=== PATIENT | male | born 1970 | race Caucasian/White ===

== ENCOUNTER 2017-12-05 18:52 | Emergency (ER) | payer BC, SELFPAY ==
[2017-12-05 18:57] VITALS: BP 136/86; PULSE 118; RESP 22; TEMP 38.4; O2SAT 97
[2017-12-05 19:41] VITALS: BP 136/86; PULSE 118; RESP 22; TEMP 38.4; O2SAT 97
[2017-12-05 20:50] LABS: Add Manual Diff / Slide Review NO; Eosinophils Percent Auto 0.5 % (2-4); Hemoglobin 16.1 g/dL (13.5-17.5); Lymphocytes Percent Auto 10.2 % (25-40); Mean Corpuscular HGB Conc 34.9 % (30-36); Mean Corpuscular Hemoglobin 31.8 PG (26-34); Mean Corpuscular Volume 91.2 fL (80-100); Monocytes Percent Auto 8.4 % (3-14); Neutrophils Absolute Auto 14700 /uL (3000-5900); Neutrophils Percent Auto 79.9 % (50-75); Platelet Count 202 X10^3/uL (150-400); Red Blood Cell Count 5.04 X10^6/uL (4.5-5.9); Red Cell Distribution Width 13.5 % (11.6-14.8); White Blood Cell Count 18.4 X10^3/uL (4.5-11.0)
[2017-12-05] MEDS: SODIUM CHLORIDE 0.9% 1,000 ML 1000 ML IV (20:50)
[2017-12-05 21:00] LABS: Alanine Aminotransferase 30 IU/L (21-72); Albumin 4.5 g/dL (3.5-5.0); Albumin Globulin Ratio 1.2 (1.0-2.8); Alkaline Phosphatase 77 U/L (38-126); Aspartate Aminotransferase 47 IU/L (17-59); BUN Creatinine Ratio 16.7 (6-22); Bilirubin Total 0.9 mg/dL (0.2-1.3); Blood Urea Nitrogen 15 mg/dL (9-20); Calcium 9.4 mg/dL (8.4-10.2); Carbon Dioxide 26 mmol/L (22-32); Chloride 102 mmol/L (98-107); Estimated Glomerular Filt Rate > 60.0 mL/min (>60); Globulin 3.9 g/dL (1.7-4.1); Glucose 114 mg/dL (70-100); HEMOLYSIS 27 (0-50); Potassium 4.2 mmol/L (3.4-5.1); Sodium 140 mmol/L (137-145); Total Protein 8.4 g/dL (6.3-8.2)
[2017-12-05 21:02] VITALS: TEMP 38.4
[2017-12-05] MEDS: HYDROMORPHONE 1 MG INJ 0.5 MG IV (21:02)
[2017-12-05 21:45] VITALS: TEMP 37.9
--- NOTE | 2017-12-05 22:15 | DI.CT.S_ITS ---
PROCEDURE: CT ABDOMEN PELVIS W CON INDICATIONS: low abdominal pain TECHNIQUE: After the administration of intravenous contrast, 5 mm thick sections acquired from the diaphragm to the symphysis. 5 mm coronal and sagittal reformats were acquired. For radiation dose reduction, the following was used: automated exposure control, adjustment of mA and/or kV according to patient size. COMPARISON: None. FINDINGS: Image quality: Excellent. ABDOMEN: Lung bases: Lung bases are clear. Heart size is normal. Solid organs: Liver is normal in size and enhancement. Gallbladder is within normal limits. Biliary system is non dilated. Pancreas enhances normally. Spleen is normal in size and enhancement. No adrenal nodules. Kidneys demonstrate normal size. Nonobstructing calculi within the inferior pole left kidney are present measuring less than 5 mm diameter. Peritoneum and bowel: Stomach and small bowel are within normal limits. Appendix is normal. Colon is nondistended. There is diverticulosis of the descending and sigmoid colon. There is moderate thickening of the proximal sigmoid colon within the left pelvis. Moderate fastenings around this segment of colon. No pericolonic abscess. No free fluid or air. Nodes and vessels: No retroperitoneal or mesenteric adenopathy by size criteria. Aorta and inferior vena cava are normal in size. Miscellaneous: No ventral hernias. PELVIS: Genitourinary: Bladder wall thickness is normal. Miscellaneous: No inguinal hernias or adenopathy. Bones: No suspicious bony lesions. No vertebral body compression fractures. IMPRESSION: 1. Diverticulitis of the proximal sigmoid colon. No pericolonic abscess. 2. Nonobstructing left inferior pole nephroliths. Dictated by: Janae Florence M.D. on 12/05/2017 at 23:42 Approved by: Janae Florence M.D. on 12/05/2017 at 23:45
[2017-12-05 22:56] VITALS: BP 120/68; PULSE 110; RESP 18; O2SAT 96
[2017-12-05 22:56] LABS: Bacteria Urine None Seen; RBC Urine None Seen (0-5/HPF); WBC Urine None Seen (0-5/HPF)
[2017-12-05 22:57] LABS: Appearance Urine UA CLEAR; Bilirubin Urine UA NEGATIVE (NEGATIVE); Color Urine UA YELLOW; Glucose Urine UA NEGATIVE (Normal); Ketones Urine UA 1+ (NEGATIVE); Leukocyte Esterase Urine UA NEGATIVE (NEGATIVE); Nitrite Urine UA Negative (Negative); Occult Blood Urine UA TRACE-LYSED (Negative); Protein Urine UA NEGATIVE (Negative); Specific Gravity Urine UA 1.015 (1.000-1.035); Urobilinogen Urine UA 0.2 E.U./dL (0.2)
[2017-12-05 23:07] LABS: Culture Indicated Urine Cult Not Indicated; Urine Comments Microscopic Normal
[2017-12-06] MEDS: metroNIDAZOLE 500 MG/100 ML PIGGYBACK 100 MG IV (00:36)
[2017-12-06] MEDS: levoFLOXacin 750 MG/150 ML PIGGYBACK 100 MG IV (01:42)
--- NOTE | 2017-12-06 03:40 | PC.NURSE ---
Pt abx finished infusing, dr goreayed pt to rest in room after dc due to pt being from [place] here on a boat.
--- NOTE | 2017-12-06 06:02 | ED.ABDPAIN ---
HPI - Abdominal Pain General Chief Complaint: Abdominal Pain Stated Complaint: sent for possible Diverticulitis Time Seen by Provider: 12/05/17 19:22 Source: patient and family Mode of arrival: ambulatory Limitations: no limitations History of Present Illness MD complaint: abdominal pain Onset (ago): day(s) (2) Pain Consistency: constant ( Worsening) Location: LLQ and L flank Severity: moderate Severity scale (1-10): 6 Quality: stabbing ( throbbing) Radiation: none Relieving factors: nothing Exacerbating factors: nothing Context: other ( Patient and have been on a sailboat trip. Patient noticed that the pain worsened this morning during intercourse, and he sought care at a clinic in the [facility]. He was sent over here out of concern for diverticulitis.) Associated symptoms: nausea Treatments prior to arrival: other ( None) Related Data Previous Rx's Medication Instructions Recorded hydrocodone-acetaminophen 2 tab PO Q6H PRN #14 tab 12/06/17 levofloxacin [Levaquin] 500 mg PO DAILY #14 tab 12/06/17 metronidazole [Flagyl] 500 mg PO BID #28 tab 12/06/17 Allergies Allergy/AdvReac Type Severity Reaction Status Date / Time No Known Drug Allergies Allergy Verified 12/05/17 20:31 Review of Systems Review of Systems All systems reviewed & are unremarkable except as noted in HPI and below Constitutional Denies chills, Denies fever(s), Denies lethargy and Denies weakness Eyes Denies change in vision, Denies eye discharge, Denies irritation and Denies loss of vision ENT Ears, Nose, Mouth, and Throat: Denies change in voice, Denies neck pain and Denies sore throat Cardiovascular Denies chest pain, Denies irregular heart rhythm, Denies lightheadedness, Denies palpitations, Denies dyspnea, Denies dyspnea on exertion and Denies orthopnea Respiratory Denies cough, Denies dyspnea, Denies dyspnea on exertion and Denies wheezing Gastrointestinal Gastrointestinal: Reports abdominal pain, Denies change in bowel habits, Denies diarrhea, Denies nausea and Denies vomiting Genitourinary Denies hematuria, Denies flank pain, Denies urinary incontinence and Denies urinary urgency Musculoskeletal Denies neck pain Integumentary/Breasts Denies pruritus, Denies erythema, Denies rash and Denies wounds Neurologic Denies confusion, Denies loss of vision and Denies weakness Psychiatric Denies anxiety, Denies confusion, Denies depression, Denies homicidal ideation and Denies suicidal ideation Endocrine Denies palpitations Hematologic/Lymphatic Denies easy bruising Allergic/Immunologic Denies wheezing PFSH Medical History Diverticulitis (Acute) Surgical History No pertinent past surgical history (Acute) Comment: occasional alcohol Exam Initial Vital Signs Initial Vital Signs: Vital Signs Temperature 101.2 F H 12/05/17 18:57 Pulse Rate 118 H 12/05/17 18:57 Respiratory Rate 22 12/05/17 18:57 Blood Pressure 136/86 12/05/17 18:57 Pulse Oximetry 97 12/05/17 18:57 Const General: cooperative and well developed Nutritional Appearance: well nourished Orientation: alert, awake, oriented x3 and not confused HENNH Head: normocephalic and atraumatic Ears: external ears normal Nose: external nose normal and No nasal discharge Face and sinus: face symmetric and No dry mucous membranes Mouth: oral mucosae normal and moist mucous membranes Eyes General: appearance normal, both eyes and all related structures Eyelids: eyelids normal Conjunctivae: conjunctivae normal Sclera: sclerae normal Pupils: PERRL EOM: EOM intact bilaterally Neck Neck: normal visual inspection, trachea midline, No lymphadenopathy, No midline deformity and No JVD Lymphatic: No lymphedema Chest Chest: normal inspection of the chest Resp Effort & Inspection: normal respiratory effort, able to speak in complete sentences, no respiratory distress and no use of accessory muscles Auscultation: clear to auscultation bilaterally, no rales, no rhonchi and no wheezes Cardio Rate: regular rate Rhythm: regular rhythm Heart Sounds: no click, no gallops, no murmurs and no rubs Pulses: normal peripheral pulses GI Inspection: non-distended Palpation: soft, no hepatosplenomegaly, No guarding, No pulsatile mass and tender ( moderate, left lower quadrant.) Back/Spine/Pelvis Back: No CVA tenderness Cervical Spine: cervical ROM normal and No pain with cervical ROM Thoracic/Lumbar Spine: thoracic and lumbar spine normal to inspection Skin General: no rashes or lesions noted, No jaundice and No petechiae Neuro General: alert, oriented x3, gait normal and no focal motor deficits Speech: speech normal Extrem General: full ROM, no clubbing, cyanosis or edema, no pedal edema and no calf tenderness Psych Appearance: well kempt Mental Status: mental status grossly normal Attitude: cooperative Thought Content: normal and suicidality Judgment: judgment good Course Course Narrative: The patient was treated symptomatically for his pain. He was worked up with labs and CT scan, and found to have diverticulitis. He was given antibiotics for this in the emergency department. We have discussed home management, as well as the usual indications for return. Orders Ordered: Discontinued Medications Hydromorphone HCl (Dilaudid) 0.5 mg IV NOW ONE Stop: 12/05/17 20:45 Last Admin: 12/05/17 21:02 Dose: 0.5 mg Sodium Chloride (Normal Saline 0.9%) 1,000 mls @ 1,000 mls/hr IV BOLUS ONE Stop: 12/05/17 21:43 Last Infusion: 12/05/17 21:57 Dose: 0 mls/hr Admin: 12/05/17 20:50 Dose: 1,000 mls/hr Levofloxacin (Levaquin) 750 mg in 150 mls @ 100 mls/hr IV NOW ONE Stop: 12/06/17 01:52 Last Infusion: 12/06/17 03:25 Dose: 0 mls/hr Admin: 12/06/17 01:42 Dose: 100 mls/hr Metronidazole (Flagyl) 500 mg in 100 mls @ 100 mls/hr IV NOW ONE Stop: 12/06/17 01:22 Last Infusion: 12/06/17 01:43 Dose: 0 mls/hr Admin: 12/06/17 00:36 Dose: 100 mls/hr Vital Signs - 8 hr 12/05/17 22:56 Pulse Rate 110 H Respiratory Rate 18 Blood Pressure [Left Arm] 120/68 Pulse Oximetry 96 MDM - Abdominal Pain Medical Records Attestation: I reviewed the patient's medical records. Lab Data Attestation: I reviewed the patient's lab results. Result diagrams: 12/05/17 19:15 12/05/17 19:15 Lab Results 12/05/17 12/05/17 12/05/17 Range/Units 19:15 19:15 22:55 WBC 18.4 H (4.5-11.0) X10^3/uL RBC 5.04 (4.5-5.9) X10^6/uL Hgb 16.1 (13.5-17.5) g/dL Hct 46.0 (41-53) % MCV 91.2 (80-100) fL MCH 31.8 (26-34) PG MCHC 34.9 (30-36) % RDW 13.5 (11.6-14.8) % Plt Count 202 (150-400) X10^3/uL Neut % (Auto) 79.9 H (50-75) % Lymph % (Auto) 10.2 L (25-40) % [place] % (Auto) 8.4 (3-14) % Eos % (Auto) 0.5 L (2-4) % Baso % (Auto) 1.0 (0-2) % Neut # (Auto) 74258 H (7913-1087) /uL Sodium 140 (137-145) mmol/L Potassium 4.2 (3.4-5.1) mmol/L Chloride 102 (98-107) mmol/L Carbon Dioxide 26 (22-32) mmol/L BUN 15 (9-20) mg/dL Creatinine 0.90 (0.66-1.25) mg/dL Estimated GFR > 60.0 (>60) mL/min BUN/Creatinine Ratio 16.7 (6-22) Glucose 114 H (70-100) mg/dL Calcium 9.4 (8.4-10.2) mg/dL Total Bilirubin 0.9 (0.2-1.3) mg/dL AST 47 (17-59) IU/L ALT 30 (21-72) IU/L Alkaline Phosphatase 77 (38-126) U/L Total Protein 8.4 H (6.3-8.2) g/dL Albumin 4.5 (3.5-5.0) g/dL Globulin 3.9 (1.7-4.1) g/dL Albumin/Globulin Ratio 1.2 (1.0-2.8) Urine Color Yellow Urine Appearance Clear Urine pH 5.0 (4.5-8.0) Ur Specific [place] 1.015 (1.000-1.035) Urine Protein Negative (Negative) Urine Glucose (UA) Negative (Normal) g/dL Urine Ketones 1+ H (NEGATIVE) Urine Occult Blood Trace-lysed (Negative) Urine Nitrate Negative (Negative) Urine Bilirubin Negative (NEGATIVE) Urine Urobilinogen 0.2 (0.2) E.U./dL Ur Leukocyte Esterase Negative (NEGATIVE) Urine RBC None seen (0-5/HPF) Urine WBC None seen (0-5/HPF) Urine Bacteria None seen (None) Ur Culture Indicated? Cult not indicated Micro UA Comment Microscopic normal Imaging Data CT scan - abdomen: Radiologist's impression: PROCEDURE: CT ABDOMEN PELVIS W CON INDICATIONS: low abdominal pain TECHNIQUE: After the administration of intravenous contrast, 5 mm thick sections acquired from the diaphragm to the symphysis. 5 mm coronal and sagittal reformats were acquired. For radiation dose reduction, the following was used: automated exposure control, adjustment of mA and/or kV according to patient size. COMPARISON: None. FINDINGS: Image quality: Excellent. ABDOMEN: Lung bases: Lung bases are clear. Heart size is normal. Solid organs: Liver is normal in size and enhancement. Gallbladder is within normal limits. Biliary system is non dilated. Pancreas enhances normally. Spleen is normal in size and enhancement. No adrenal nodules. Kidneys demonstrate normal size. Nonobstructing calculi within the inferior pole left kidney are present measuring less than 5 mm diameter. Peritoneum and bowel: Stomach and small bowel are within normal limits. Appendix is normal. Colon is nondistended. There is diverticulosis of the descending and sigmoid colon. There is moderate thickening of the proximal sigmoid colon within the left pelvis. Moderate fastenings around this segment of colon. No pericolonic abscess. No free fluid or air. Nodes and vessels: No retroperitoneal or mesenteric adenopathy by size criteria. Aorta and inferior vena cava are normal in size. Miscellaneous: No ventral hernias. PELVIS: Genitourinary: Bladder wall thickness is normal. Miscellaneous: No inguinal hernias or adenopathy. Bones: No suspicious bony lesions. No vertebral body compression fractures. IMPRESSION: 1. Diverticulitis of the proximal sigmoid colon. No pericolonic abscess. 2. Nonobstructing left inferior pole nephroliths. Dictated by: Janae Florence M.D. on 12/05/2017 at 23:42 Approved by: Janae Florence M.D. on 12/05/2017 at 23:45 Discharge Plan Departure Patient Disposition: Home Clinical Impression: Diverticulitis Discharge Date/Time: 12/06/17 06:32 Interventions: ED Discharge Assessment Last Done: 12/06/17 06:30 Instructions: DI for Diverticulitis Activity Restrictions/Additional Instructions: Your labs showed an elevated white blood cell count, which is to be expected with your condition. Your CT scan showed diverticulitis, and inflammation of 1 or more pouch like structures in the large intestine. The treatment for this is antibiotics, which have been started on in the emergency department tonight. Will need to continue taking antibiotics for a total of 2 weeks to completely get rid of this infection. If you developed worsening symptoms after 3 days of antibiotics, then you will need to seek medical re-evaluation without delay. Otherwise, your symptoms should be expected to start improving after about 3 days, and steadily improve from there on. You may follow up with your primary doctor, as needed. Prescriptions: New hydrocodone-acetaminophen 5-325 mg tablet 2 tab PO Q6H PRN (Reason: pain) Qty: 14 RF: 0 metronidazole [Flagyl] 500 mg tablet 500 mg PO BID Qty: 28 RF: 0 levofloxacin [Levaquin] 500 mg tablet 500 mg PO DAILY Qty: 14 RF: 0
[2017-12-06 06:30] VITALS: BP 122/65; PULSE 92; RESP 15; TEMP 37.4; O2SAT 99
== END 2017-12-06 06:32 | disposition home or self-care (01) ==
PROVIDERS: Emergency Provider Emergency Medicine
DX: K57.92 Diverticulitis of intestine, part unspecified, without perforation or abscess without bleeding (principal)
CPT/HCPCS: 36591; 74177; 80053; 81001; 85025; 96361; 96365; 96366; 96367; 96375; 99283; 99285; J1170; J1956; Q9967